=== PATIENT | female | born 1965 | race Hispanic/Latino ===

== ENCOUNTER → 2016-11-03 | Outpatient (CLI) | payer OTHER ==
--- NOTE | 2016-11-03 18:17 | Diagnostic Imaging Report ---
Bilateral diagnostic mammogram. INDICATION: Follow-up lateral right breast asymmetry. The current study was also evaluated with a Computer Aided Detection (CAD) system. COMPARISON: 12/20/2005 and other prior exams. FINDINGS: Heterogeneously dense parenchyma is again seen in both breasts. The previously seen lateral right breast asymmetry has resolved suggestive of a benign process or summation effect of parenchyma. Central right MLO view slightly increased nonspecific density seen. When correlated with the true lateral view, it resolves compatible with summation artifact. The left breast demonstrates no definite change. IMPRESSION: No mammographic evidence of malignancy. Annual screening mammograms recommended. ACR BI-RADS Category 2: Benign findings. Result letter will be mailed to the patient. Note: At least 10% of breast cancer is not imaged by mammography. Dictated by: Dictated on workstation # [id number]
== END ==
LOC: RAD 12:25
PROVIDERS: ATTEND Nurse Practitioner Family
DX: R92.8 Other abnormal and inconclusive findings on diagnostic imaging of breast (principal)
CPT/HCPCS: 77066